=== PATIENT | male | born 1995 | race Caucasian/White ===

== ENCOUNTER → 2021-01-11 | Outpatient (CLI) | payer SELFPAY ==
[~2021-01-11] VITALS: Ht 182.9 cm; Wt 125.0 kg
[~2021-01-11] MED LIST: GADOBUTROL 7.5 MMOL/7.5 ML (GADAVIST) VIAL IV ONE; IOHEXOL 300 MG/ML 50 ML (OMNIPAQUE 300) VIAL IV ONE
--- NOTE | 2021-01-11 15:50 | Diagnostic Imaging Report ---
INDICATION: Right wrist pain. The patient was brought to the fluoroscopy suite and placed on table in the prone position. The skin of the dorsum of the right wrist was prepped and draped in the usual sterile fashion. A small amount of 1% lidocaine was utilized for local anesthesia. A 25-gauge needle was advanced and placed with its tip in the radiocarpal space. Approximately 3 mL of Omnipaque 300, normal saline and gadolinium contrast solution was injected under fluoroscopic observation. 24 seconds of fluoroscopic time was utilized. Needle was withdrawn and hemostasis was obtained. The patient tolerated the procedure well and was sent to MRI in satisfactory condition. IMPRESSION: Successful right wrist injection of gadolinium contrast solution, using fluoroscopy. Dictated by: Dictated on workstation # [id number]
--- NOTE | 2021-01-12 12:38 | Diagnostic Imaging Report ---
PROCEDURE: MRI upper extremity any joint with contrast right. TECHNIQUE: Multiplanar, multisequence contrast-enhanced MRI of the right upper extremity was accomplished. INDICATION: Wrist pain, chronic in nature. No known injuries. EXAMINATION: Right wrist MRI with and without contrast 01/11/2021 FINDINGS: There is diffuse enlargement of the extensor carpi ulnaris tendon with a short segment longitudinal split tear at the level of the ulnar styloid process. Surrounding fluid within the sheath is noted consistent with tenosynovitis. There is mild irregularity along the ulnar attachment of the triangular fibrocartilage likely due to degenerative signal. No full-thickness tear is appreciated. The scapholunate ligament appears intact. Lunotriquetral ligament intact. Contrast however is seen emanating in between the scaphoid and capitate and in between the scaphoid trapezium and trapezoid. This appears to extend through the radial aspect of the wrist. The region of the scaphotrapezial and scaphotrapezoid ligaments are thickened and ill-defined and likely torn given the extension of contrast into the adjacent joint spaces. The radial collateral ligament is somewhat irregular in nature but appears to be intact. There is no acute osseous abnormality. The carpal tunnel appears intact. IMPRESSION: 1. Tears of the scaphotrapezial and scaphotrapezoid ligaments with extension of contrast through the region into the intercarpal rows in the radiocarpal aspect of the wrist. Scapholunate and lunotriquetral ligaments intact. 2. Irregularity with partial tear of the triangular fibrocartilage at the ulnar attachment. No complete discontinuity. 3. Short segment longitudinal split tear of the extensor carpi ulnaris tendon which appears to contain changes of tenosynovitis. Remaining tendons intact and unremarkable. Dictated by: Dictated on workstation # [id number]
== END ==
LOC: RAD 14:15
PROVIDERS: ATTEND Nurse Practitioner
DX: S63.511A Sprain of carpal joint of right wrist, initial encounter (principal); S66.811A Strain of other specified muscles, fascia and tendons at wrist and hand level, right hand, initial encounter; X58.XXXA Exposure to other specified factors, initial encounter
CPT/HCPCS: 25246; 73115; 73222